=== PATIENT | male | born 1970 | race Caucasian/White ===

== ENCOUNTER 2018-09-21 21:40 | Outpatient (REF) | payer BC, SELFPAY ==
[2018-09-21 22:41] LABS: TSH 1.75 uIU/mL (0.358-3.74)
== END 2018-09-21 22:00 ==
LOC: NCHCN 21:40
PROVIDERS: Registered Nurse; PCP Nurse Practitioner Family
DX: R53.83 Other fatigue (principal)
CPT/HCPCS: 84443

== ENCOUNTER 2019-09-25 22:44 | Outpatient (REF) | payer BC, SELFPAY ==
[2019-09-25 22:05] LABS: ALT 38 U/L (16-63); AST 23 U/L (15-37); Albumin 3.9 g/dL (3.4-5.0); Alkaline Phosphatase 74 U/L (46-116); Anion Gap 7.6 mmol/L (3-11); BUN 17 mg/dL (7-18); Bilirubin, Total 0.4 mg/dL (0.2-1.0); CO2 28.4 mmol/L (21.0-32.0); Calcium 8.6 mg/dL (8.5-10.1); Calculated LDL 96 mg/dL (<100); Chloride 106 mmol/L (98-107); Cholesterol 183 mg/dL (<200); Glucose 81 mg/dL (74-106); HDL Cholesterol 31 mg/dL (40-60); Potassium 4.3 mmol/L (3.5-5.1); Sodium 142 mmol/L (136-145); Triglyceride 281 mg/dL (<150)
[2019-09-25 22:37] LABS: Hemoglobin A1C 5.6 % (3.8-5.6)
== END 2019-09-25 23:04 ==
LOC: NCHCN 22:44
PROVIDERS: PCP Nurse Practitioner Family; Visit Provider Nurse Practitioner Family
DX: Z00.00 Encounter for general adult medical examination without abnormal findings (principal); E78.5 Hyperlipidemia, unspecified; E66.9 Obesity, unspecified; Z13.1 Encounter for screening for diabetes mellitus
CPT/HCPCS: 80053; 80061; 83036

== ENCOUNTER 2019-11-06 16:21 | Outpatient (REF) | payer BC, SELFPAY ==
--- NOTE | 2019-11-06 09:47 | SKI_PTH ---
PATIENT: Edis Livingston LOC: [facility] U#:[id number] AGE/SX: 49/M ROOM: RE11/06/[address]: Zoila Love : 1970 BED: DIS: 11/06/2019 SPEC #: [id number] RECD: 11/07/19 12:45 STATUS: CURTIS MORAES #: [id number] ADELE: 11/06/19 09:[address]: Zoila Love DEPT: Surgical Specimen RECD BY: Estephania Whitlock Tissues: 1 - SKIN BIOPSY(SHAVE/PUNCH) Procedures: SKIN LEVEL 4 Comments: [id number]
== END 2019-11-06 16:41 ==
LOC: LBN 16:21
PROVIDERS: PCP Nurse Practitioner Family; Visit Provider Nurse Practitioner Family
DX: D23.61 Other benign neoplasm of skin of right upper limb, including shoulder (principal)
CPT/HCPCS: 88305

== ENCOUNTER 2020-06-18 14:16 | Outpatient (REF) | payer BC, SELFPAY ==
[2020-06-20 20:47] LABS: COVID-19 RT-PCR Result NEGATIVE (Negative)
== END 2020-06-18 14:36 ==
LOC: NCHCN 14:16
PROVIDERS: PCP Nurse Practitioner Family; Visit Provider Nurse Practitioner Family
DX: R19.7 Diarrhea, unspecified (principal); R11.0 Nausea; Z20.828 Contact with and (suspected) exposure to other viral communicable diseases
CPT/HCPCS: U0003

== ENCOUNTER 2020-09-26 09:08 | Outpatient (REF) | payer BC, SELFPAY ==
[2020-09-26 13:54] LABS: ALT 45 U/L (16-63); AST 26 U/L (15-37); Albumin 3.9 g/dL (3.4-5.0); Alkaline Phosphatase 73 U/L (46-116); Anion Gap 5.2 mmol/L (3-11); BUN 19 mg/dL (7-18); Bilirubin, Total 0.6 mg/dL (0.2-1.0); CO2 26.8 mmol/L (21.0-32.0); Calcium 8.7 mg/dL (8.5-10.1); Calculated LDL 151 mg/dL (<100); Chloride 106 mmol/L (98-107); Cholesterol 213 mg/dL (<200); Glucose 107 mg/dL (74-106); HDL Cholesterol 37 mg/dL (40-60); Potassium 4.4 mmol/L (3.5-5.1); Sodium 138 mmol/L (136-145); Total Protein 7.1 g/dL (6.4-8.2); Triglyceride 129 mg/dL (<150)
== END 2020-09-26 09:28 ==
LOC: NCHCN 09:08
PROVIDERS: PCP Nurse Practitioner Family; Visit Provider Nurse Practitioner Family
DX: Z00.00 Encounter for general adult medical examination without abnormal findings (principal); Z13.220 Encounter for screening for lipoid disorders
CPT/HCPCS: 80053; 80061

== ENCOUNTER 2021-02-28 07:00 | Day surgery (SDC) | payer BC, SELFPAY ==
--- NOTE | 2021-02-27 23:35 | HPE_ITS ---
Date of service: 02/28/21 Time of Service: 07:00 Assessment and Plan Assessment and plan (1) Screening for malignant neoplasm of colon: Status: Acute Assessment and plan: Risks: Informed consent is obtained for the procedural (explained in simple layman's terms that the pt and/or family could understand) explaining risks vs benefits and alternatives to the procedure and consequences if we do not do the procedure and need/rational for the procedure. Risks include but are not limited to:bleeding, infection, perforation of colon. This would necessitate emergency surgery to repair the damage w/ possible ostomy; and other associated complications w/ the required surgery. Also complications of anesthesia including aspiration,CO/CVA/. History of Present Illness Narrative: From clinic visit on 11.30.20 1) Screening for malignant neoplasm of colon: The patient is here for Colonoscopy pre-op. He has no family history of colon cancer. He has not had any bowel habit changes. -Discussed colonoscopy bowel prep as well as the procedure. Discussed possible complications of the procedure to include bleeding, pain, perforation, missed small lesion/polyp, sore throat, aspiration and adverse reaction to the medications. Questions were answered to patient?s satisfaction. No guarantees were implied or given. P// Colonoscopy under sedation Plan Detail New: bisacodyl (Dulcolax (bisacodyl)) 5 mg PO ONCE 4 tabs 0RF Colonoscopy Bowel PRep polyethylene glycol 3350 Colonoscopy Bowel Prep- Per Instructions 238 grams PO ONCE 238 grams 0RF Colonoscopy Bowel Prep HPI 50 y/o male presents for his first colonoscopy screening pre-op. He denies a family history of colon cancer. He denies any changes in bowel habits including bloody or black tarry stools, abdominal pain, diarrhea or constipation. He denies constitutional symptoms. He reports occasional use of marijuana. Denies use of any other recreational or illegal drugs. He denies chest pain, palpitations, dyspnea or dyspnea with exertion. He denies prior history or family history of adverse reactions or complications with an esthesia. The patient denies any history of stroke, CO, seizures, bleeding or clotting disorders. He denies having any implanted metal in his body. Today on the morning of 02.28.21 patient is feeling He denies any chest pain or shortness of breath. He denies any fever or chills. He denies any cough. He did complete a bowel prep and there is only a clear yellow effluent he is having no abdominal pain or cramping. He had no bleeding. All questions are answered to the patient's satisfaction the bar ready to proceed with procedure Review of Systems All systems reviewed & are unremarkable except as noted in HPI and below PFSH Medical History Dyslipidemia Obesity Surgical History History of hernia repair Social History Smoking/Tobacco Use Status: Never Smoking risk assessment performed?: Yes Alcohol Intake: current Alcohol Intake frequency: a few times a week Alcohol type: beer and hard liquor Drug use: Occasionally Substance use type: marijuana Do you feel safe at home: Yes Do you feel safe in your relationship?: Yes Meds Allergies and Home Medications Allergies Allergy/AdvReac Type Severity Reaction Status Date / Time No Known Allergies Allergy Verified 02/28/21 07:44 Home Medications Medication Instructions Recorded Confirmed Type cetirizine 10 mg tablet 10 mg PO DAILY PRN 12/27/20 02/28/21 History Exam Const General: cooperative, healthy appearing, comfortable, no acute distress, well developed and well groomed Nutritional Appearance: average body habitus and well nourished Orientation: alert, awake and oriented x3 HENMT Head: normal to inspection, normocephalic and atraumatic Ears: hearing grossly normal bilaterally and external ears normal General nose exam: external nose normal Face and sinus: normal facial exam and sinuses nontender Mouth: oral mucosae normal, lip normal, tongue normal and moist mucous membranes Teeth and gingiva: dentition normal Eyes General: appearance normal, both eyes and all related structures Conjunctivae: conjunctivae normal Sclera: sclerae normal Pupils: PERRL Neck Neck: normal visual inspection and full ROM Chest Chest: normal inspection of the chest Resp Effort & Inspection: normal respiratory effort, able to speak in complete sentences, no cough, no nasal flaring, not tachypneic and no use of accessory muscles Auscultation: clear to auscultation bilaterally, no rales, no rhonchi and no wheezes Cardio Jugular venous pressure: no JVD Rate: regular rate Rhythm: regular rhythm GI Inspection: normal to inspection, no edema and non-distended Palpation: soft, no masses, nontender and No ascites Auscultation: normal bowel sounds Other: ARTUR was deferred until colonoscopy Skin General skin exam: no rashes or lesions noted Trauma: no lacerations or abrasions Neuro General: patient alert, patient oriented x3, oriented, gait normal, moves all extremities, no focal motor deficits and CN's II-XI intact bilaterally Cognition: normal cognition Speech: speech normal Gait: normal gait Motor: muscle tone normal throughout Extrem General: normal to inspection, full ROM and no clubbing, cyanosis or edema Psych Appearance: grossly normal and well kempt Mental Status: mental status grossly normal Speech and Movement: speech and movement normal Affect: normal affect
[2021-02-28 07:44] VITALS: BP 123/67; PULSE 55; RESP 16; TEMP 36.2; O2SAT 92
[2021-02-28] MEDS: Lactated Ringers 1,000 ML 80 ML IV (08:05)
--- NOTE | 2021-02-28 09:07 | W.ANESPRE ---
General Info Date of Service Date Performed: 02/28/21 Height: 5 ft 11 in Weight: 131.2 kg Body Mass Index (BMI): 40.3 Surgical Procedure: Operation Date: 02/28/21 09:35 Proposed Procedures Side Surgeon hellen Boothe, Meds Allergies and Home Medications Allergies Allergy/AdvReac Type Severity Reaction Status Date / Time No Known Allergies Allergy Verified 02/28/21 07:44 Home Medication Medication Instructions Recorded cetirizine 10 mg tablet 10 mg PO DAILY PRN 12/27/20 Current Visit Medications: Current Medications Generic Name Dose Route Start Last Admin Trade Name Freq PRN Reason Stop Dose Admin Hyoscyamine Sulfate 0.125 mg 02/27/21 23:45 Hyoscyamine 0.125 Mg Sl/Oral/Chew SL DIRECTED PRN Ringer's Solution 1,000 mls @ 80 mls/hr 02/28/21 06:00 02/28/21 08:05 IV 03/29/21 23:59 80 mls/hr INFUSION BEATRIS Administration IV Miscellaneous Supplies 1 each 02/28/21 06:00 Iv Access IV 03/29/21 23:59 DIRECTED BEATRIS Ondansetron HCl 4 mg 02/27/21 23:45 Ondansetron 4 Mg/2 Ml Vial IVP Q4H PRN PRN Nausea / Vomiting Sodium Chloride 0 ml 02/28/21 06:00 Normal Saline Flush 10 Ml Syr IV 03/29/21 23:59 PRN PRN Sodium Chloride 0 ml 02/28/21 06:00 Normal Saline 10 Ml Vial IJ 03/29/21 23:59 DIRECTED PRN Sterile Water 0 ml 02/28/21 06:00 Water,Injection,Sterile 10 Ml Vial IJ 03/29/21 23:59 DIRECTED PRN PFSH Active Problems Active Problems: Problem Status Onset Code Screening for malignant neoplasm of colon Z12.11 Medical History Medical History Dyslipidemia Obesity Surgical History Surgical History History of hernia repair Tobacco Smoking/Tobacco Use Status: Never Alcohol Alcohol Intake: current Alcohol intake frequency: a few times a week Alcohol type: beer and hard liquor Substance Use Substance use: Occasionally Substance use type: marijuana Vital Signs and Lab Results Vital Signs Most Recent Vital Signs in EMR: Most Recent Vital Signs Temp Pulse Resp BP Pulse Ox 36.2 C L 55 L 16 123/67 92 02/28/21 07:44 02/28/21 07:44 02/28/21 07:44 02/28/21 07:44 02/28/21 07:44 Lab Results Blood Type / Crossmatch: No Data to Display Complete Blood Count: No Data to Display Complete Metabolic Panel: No Data to Display Liver Function Panel: No Data to Display Coagulation Panel: No Data to Display Cardiac Panel: No Data to Display Arterial Blood Gas: No Data to Display Venous Blood Gas: No Data to Display Pancreas Panel: No Data to Display Thyroid Panel: No Data to Display Infectious Disease: No Data to Display Blood Cultures: No Data to Display Toxicology Panel: No Data to Display Anesthesia Assessment and Plan Anesthesia History Personal History: No History of Anesthesia Complications Family History: No Family History of Anesthesia Complications Exercise Tolerance Exercise Tolerance: Metabolic Equivalents>4 Pertinent Negatives Pertinent Negatives: No Symptoms of GERD, No Major Cardiovascular Symptoms or Complaints and No Major Pulmonary Symptoms or Complaints Cardiac & Pulmonary Exam Cardiac Exam: Normal S1/S2 Heart Sounds Pulmonary Exam: Clear Bilateral Breath Sounds Airway Exam Known Difficult Airway: No Mallampati Class: 2 Mouth Opening: Normal (> 3cm) Thyromental Distance: Greater than 3 cm Neck Range of Motion: Full ROM Neck Circumference: Thick Teeth Condition: Normal Dentition ASA Classification ASA Score: ASA 2 Emergency Case?: No NPO Status NPO Status: NPO Clears >2 hours, Solids >8 hours Anesthesia Plan Resuscitation Status: Full Code Anesthesia Technique: General Anesthesia Airway Planned: Natural Airway Monitors Used: Standard Monitors
[2021-02-28 09:16] VITALS: BMI 40.3
--- NOTE | 2021-02-28 09:50 | BOWEL_PTH ---
PATIENT: Edis Livingston LOC: [facility] U#:[id number] AGE/SX: 50/M ROOM: RE02/28/[address]: Socorro Boothe : 1970 BED: DIS: 02/28/2021 SPEC #: [id number] RECD: 02/28/21 13:09 STATUS: CURTIS RE #: [id number] ADELE: 02/28/21 09:[address]: Socorro Boothe DEPT: Surgical Specimen RECD BY: Estephania Whitlock ENTERED: 02/28/21 13:10 SP TYPE: Bowel OTHR DR: Zoila Love Tissues: 1 - BIOPSY BOWEL Procedures: GROSS AND MICRO LEVEL 4 Comments: [id number]
--- NOTE | 2021-02-28 09:55 | PDOC.DSDIS_ITS ---
Discharge Plan Disposition Patient Disposition: HOME Condition: Good Discharge Details Reason For Visit: colon scope Attending Provider: Socorro Boothe Primary Care Provider: Zoila Love Home Meds and New Rx's Prescriptions: No Action cetirizine [Zyrtec] 10 mg tablet 10 mg PO DAILY PRNRF: 0 Discharge Instructions Additional Instructions: DSU Colonoscopy Post- Op Instructions Instructions for Everyone who is given Anesthesia: For your safety, please do the following for the next t wenty-four (24) hours: *Do Not operate a motor vehicle (car, truck, motorcycle, etc.) *Do Not drink alcoholic beverages or use any recreational drugs for the first 24 hours or while taking pain medications. The medications in your body may have a reaction that can be dangerous. *Do Not make any important decisions or sign any important papers. Findings: x1 small polyp. otherwise normal Follow up: My office will send a letter in approximately 3 weeks detailing what type is and when to repeat the colonoscopy, most likely repeat 5 years time 1. No lifting over 20 pounds or strenuous activity for the first 24 hours after your procedure. After 24 hours there are no restrictions on your activity but you may feel fatigued for a few days. 2. After you arrive home you may have a light meal and return to your normal diet as you can tolerate it without feeling sick to your stomach. 3. You may have a bloated, gaseous feeling in your belly (abdomen) after a colonoscopy. Passing gas and belching will help. Walking or lying down on your left side with your knees flexed may relieve the discomfort. Call the office at [phone] (Office) or [phone] (Hospital) right away if you notice any of the following: a.Vomiting of blood or ?coffee ground stools?. b.Rectal bleeding 1Tbsp, blood clots or continuous bleeding. c.Severe belly (abdominal) pain. d.A hard distended belly (abdomen) and an inability to pass gas. 4. Please don?t expect to have a normal BM (bowel movement) for 2-3 days after your procedure. 5. If there are questions regarding the findings of your procedure, please contact your doctor 6. If you are unable to contact your doctor with a problem, contact the hospital at [phone]. 7. Continue all your regular medications unless directed otherwise. I understand the above instructions and have no questions. Signature of Patient or Adult Escort Name of Responsible Adult Escort Signature of Nurse Date/Time Activity:: see above Diet:: see above Discharge Orders Discharge Orders: Discharge Order (Routine); Ordered 02/27/21 Ordered By: Socorro Boothe DS: Diagnosis Discharge Diagnosis (1) Screening for malignant neoplasm of colon: Status: Acute (2) Adenomatous colon polyp: Status: Acute
--- NOTE | 2021-02-28 09:57 | W.COLOREPORT ---
Date of service: 02/28/21 Time of Service: 09:57 Colonoscopy Report Date of procedure: 02/28/21 Pre-op diagnosis general: screening Post-op diagnosis procedure note: other (A. polyp) Procedure: hot polypectomy Surgeon: Socorro Boothe Anesthesia Type: General:No Airway Estimated blood loss (mL): 0 Pathology: other Complications: None Disposition: same day Prep: Miralax/Dulcolax Retraction Time: 11 mins Procedure Description: After informed consent was obtained the patient was taken to the procedure room and placed in a left decubitous position. Monitors were applied and a time out was done. The patients name, date of , procedure, allergies to medications and metal in their body was reviewed. The patient was then sedated. Once sedated and comfortable a rectal exam was done. External exam was normal. Internal exam revealed a normal sphincter tone and no palpable masses. The scope was then introduced and retrofelexed. No internal hemorrhoids were identified. The scope was then advanced to the cecum w/out difficulty. The TI and appendiceal orifice were identified. The prep was good. The scope was then slowly retracted over 11 minutes back into the rectum. He has a polyp at 30 cm. It is 0.75 cm in size. Is almost long stalk. Isremove w/ a hot biopsy forcep in 2 bites. All specimen is retrieved and no bleeding is noted. There are no AVMs or diverticula apparent. The scope was removed and the patient was woken up and taken back to Same day surgery in stable condition. The patient tolerated the procedure well and there were no immediate complications. Follow up: The patient should follow up in 5 years-path pd, unless they develop changes in bowel habits or other new gastrointestinal complaints.
--- NOTE | 2021-02-28 10:03 | W.ANESPOSTOP ---
Postoperative Evaluation Date, Time and Location Date Performed: 02/28/21 Time Performed: 10:04 Patient Location: Day Surgery Unit Vital Signs Most Recent Imported Vital Signs: Most Recent Vital Signs Temp Pulse Resp BP Pulse Ox 36.2 C L 55 L 16 123/67 92 02/28/21 07:44 02/28/21 07:44 02/28/21 07:44 02/28/21 07:44 02/28/21 07:44 Most Recent Manually Entered Vital Signs: Adult Blood Pressure: 121/71 Heart Rate: 61 Respirations: 12 Oxygen Saturation (%): 94 Temperature (C): 36.4 C Pain Score (0-10 Scale): 0 Pain Score Most Recent Pain Score: Most Recent Pain Score Pain Level 0 02/28/21 07:44 Assessment Mental Status: Awake (Alert & Oriented to Patient Baseline) Airway and Respiratory Function: Patent airway with normal (patient baseline) respiratory exam Cardiovascular Function: Hemodynamically Stable Hydration Status: Adequately Hydrated Nausea & Vomiting: No Nausea or Vomiting Pain: Pt. Denies Any Pain Peripheral Nerve Block: Patient did not receive a nerve block
[2021-02-28 10:04] VITALS: BP 121/71; PULSE 59; RESP 14; TEMP 36.4; O2SAT 94
[2021-02-28 10:05] VITALS: BP 121/71; PULSE 61; RESP 12; TEMPC 36.4; O2SAT 94
[2021-02-28 10:32] VITALS: BP 129/80; PULSE 51; RESP 18; TEMP 36.2; O2SAT 94
== END 2021-02-28 07:01 | disposition home or self-care (01) ==
PROVIDERS: PCP Nurse Practitioner Family; Visit Provider Surgery
PROC: 0DJD8ZZ Inspection of Lower Intestinal Tract, Via Natural or Artificial Opening Endoscopic (ICD-10-PCS; CPT 45378; principal; 2021-02-28 09:30)
DX: Z12.11 Encounter for screening for malignant neoplasm of colon (principal); K63.5 Polyp of colon
CPT/HCPCS: 45384; 88305

== ENCOUNTER 2021-09-25 08:24 | Outpatient (REF) | payer BC, SELFPAY ==
[2021-09-25 15:15] LABS: ALT 42 U/L (16-63); AST 23 U/L (15-37); Albumin 3.9 g/dL (3.4-5.0); Alkaline Phosphatase 83 U/L (46-116); Anion Gap 3.7 mmol/L (3-11); BUN 19 mg/dL (7-18); Bilirubin, Total 0.7 mg/dL (0.2-1.0); CO2 27.3 mmol/L (21.0-32.0); Calcium 8.6 mg/dL (8.5-10.1); Calculated LDL 127 mg/dL (<100); Chloride 105 mmol/L (98-107); Cholesterol 209 mg/dL (<200); Glucose 109 mg/dL (74-106); HDL Cholesterol 36 mg/dL (40-60); Potassium 4.2 mmol/L (3.5-5.1); Sodium 136 mmol/L (136-145); Total Protein 7.1 g/dL (6.4-8.2); Triglyceride 230 mg/dL (<150)
== END 2021-09-25 08:25 | disposition home or self-care (01) ==
LOC: NCHCN 08:24
PROVIDERS: PCP Nurse Practitioner Family; Visit Provider Nurse Practitioner Family
DX: Z00.00 Encounter for general adult medical examination without abnormal findings (principal); R79.89 Other specified abnormal findings of blood chemistry
CPT/HCPCS: 80053; 80061

== ENCOUNTER 2022-04-23 18:22 | Outpatient (REF) | payer BC, SELFPAY | END 2022-04-23 18:23 | disposition home or self-care (01) | LOC: NCHCN 18:22 | PROVIDERS: PCP Nurse Practitioner Family; Visit Provider Nurse Practitioner Family | DX: M10.9 Gout, unspecified (principal) | CPT/HCPCS: 84550 ==

== ENCOUNTER 2024-09-07 15:12 | Outpatient (REF) | payer OTHER, SELFPAY ==
[2024-09-07 21:37] LABS: HCT 46.1 % (40.0-50.0); HGB 15.5 g/dL (13.5-17.5); MCHC 33.6 % (32.0-36.0); MCV 89 fL (80-95); MPV 11.1 fL (8.0-11.0); Platelet Count 239 10^3/uL (130-400); RBC 5.17 10^6/uL (4.36-5.78); RDW 12.5 % (11.8-14.1); RDW-SD 41.1 fL; WBC 9.12 10^3/uL (4.4-10.8)
[2024-09-07 22:16] LABS: Calculated LDL 60 mg/dL (<100); Cholesterol 150 mg/dL (<200); HDL Cholesterol 38 mg/dL (40-60); Triglyceride 261 mg/dL (<150); Vitamin D 25 Total 18.5 ng/mL (30-100)
[2024-09-08 19:07] LABS: PSA, Screening 0.8 ng/mL (<=3.5)
== END 2024-09-07 15:13 | disposition home or self-care (01) ==
LOC: NCHCN 15:12
PROVIDERS: PCP Nurse Practitioner Family; Visit Provider Family Medicine
DX: R53.83 Other fatigue (principal); E78.5 Hyperlipidemia, unspecified; Z12.5 Encounter for screening for malignant neoplasm of prostate
CPT/HCPCS: 80061; 82306; 84153; 85027; 84443